=== PATIENT | female | born 1950 | race Caucasian/White ===

== ENCOUNTER 2020-12-11 15:42 | Emergency (ER) | payer MEDICARE, OTHER ==
[2020-12-11 18:19] LABS: RED BLOOD COUNT 3.75 M/UL (4.00-5.10)
[2020-12-11] MEDS ORDERED: CEFUROXIME250 MG PO (18:37)
== END 2020-12-11 18:55 | disposition home or self-care (01) ==
LOC: ER1 15:42
PROVIDERS: Family Medicine
DX: I10 Essential (primary) hypertension (principal); E11.9 Type 2 diabetes mellitus without complications; N39.0 Urinary tract infection, site not specified; Z79.899 Other long term (current) drug therapy; Z88.8 Allergy status to other drugs, medicaments and biological substances
CPT/HCPCS: 80048; 81001; 84439; 84443; 85025; 87086; 96374; 99283

== ENCOUNTER 2021-02-10 14:30 | Emergency (ER) | payer MEDICARE, OTHER ==
[~2021-02-10 14:30] MED LIST: CEFUROXIME250 MG PO
[2021-02-10 15:12] LABS: HEMOGLOBIN 10.9 gm/dl (12.3-15.3); RED BLOOD COUNT 4.11 M/UL (4.00-5.10); WHITE BLOOD COUNT 5.8 K/UL (4.5-11.0)
[2021-02-10] MEDS ORDERED: OMNICEF 300 MG300 MG PO (17:26)
== END 2021-02-10 17:59 | disposition home or self-care (01) ==
LOC: ER1 14:30
PROVIDERS: Family Medicine
DX: I10 Essential (primary) hypertension (principal); N39.0 Urinary tract infection, site not specified; Z79.899 Other long term (current) drug therapy; Z88.8 Allergy status to other drugs, medicaments and biological substances
CPT/HCPCS: 80048; 81001; 84439; 84443; 85025; 87077; 87086; 87186; 93005; 99284